=== PATIENT | male | born 1975 | race Caucasian/White ===

== ENCOUNTER 2017-12-20 12:48 | Outpatient (CLI) | payer BC, SELFPAY ==
[2017-12-20 14:07] LABS: ALT 28 U/L (12-78); AST 28 U/L (15-37); Albumin 4.1 g/dL (3.4-5.0); Alkaline Phosphatase 73 U/L (46-116); Anion Gap 8.4 mmol/L (3-11); BUN 14 mg/dL (7-18); Bilirubin, Total 0.9 mg/dL (0.2-1.0); CO2 30.6 mmol/L (21.0-32.0); CREATININE 1.02 mg/dL (0.70-1.30); Calcium 8.4 mg/dL (8.5-10.1); Chloride 102 mmol/L (98-107); Cholesterol 209 mg/dL (50-200); Glucose 96 mg/dL (70-100); HDL Cholesterol 49 mg/dL (40-60); LDL CHOLESTEROL 140 mg/dL (<100); Potassium 4.3 mmol/L (3.5-5.1); Sodium 141 mmol/L (136-145); Total Protein 7.3 g/dL (6.4-8.2); Triglyceride 128 mg/dL (30-150)
== END 2017-12-20 13:08 ==
PROVIDERS: PCP Emergency Medicine
DX: Z13.220 Encounter for screening for lipoid disorders (principal); Z13.228 Encounter for screening for other metabolic disorders
CPT/HCPCS: 36415; 80053; 80061; 83721

== ENCOUNTER 2019-12-23 14:09 | Outpatient (CLI) | payer BC, SELFPAY ==
[2019-12-25 13:58] LABS: Patient Race White; SARS-CoV-2 RNA Undetected (Undetected); SARS-CoV-2 Specimen Source Nasopharynx
== END 2019-12-23 14:29 ==
DX: R05 Cough (principal)
CPT/HCPCS: U0003

== ENCOUNTER 2020-01-09 02:01 | Outpatient (CLI) | payer BC, SELFPAY ==
[2020-01-09 09:04] LABS: ALT 34 U/L (16-63); AST 24 U/L (15-37); Alkaline Phosphatase 70 U/L (46-116); Anion Gap 4.9 mmol/L (3-11); BUN 16 mg/dL (7-18); Bilirubin, Total 0.3 mg/dL (0.2-1.0); CO2 30.1 mmol/L (21.0-32.0); CREATININE 0.95 mg/dL (0.70-1.30); Calcium 8.8 mg/dL (8.5-10.1); Calculated LDL 136 mg/dL (<100); Chloride 104 mmol/L (98-107); Cholesterol 244 mg/dL (<200); Glucose 92 mg/dL (74-106); HDL Cholesterol 43 mg/dL (40-60); Potassium 4.5 mmol/L (3.5-5.1); Sodium 139 mmol/L (136-145); Total Protein 7.6 g/dL (6.4-8.2); Triglyceride 325 mg/dL (<150)
== END 2020-01-09 02:21 ==
DX: Z00.00 Encounter for general adult medical examination without abnormal findings (principal); E03.9 Hypothyroidism, unspecified; E78.5 Hyperlipidemia, unspecified; I10 Essential (primary) hypertension; J30.9 Allergic rhinitis, unspecified; R63.8 Other symptoms and signs concerning food and fluid intake
CPT/HCPCS: 36415; 80053; 80061

== ENCOUNTER 2020-05-20 08:39 | Outpatient (CLI) | payer BC, SELFPAY ==
[2020-05-21 14:41] LABS: COVID-19 RT-PCR UVMMC Result Negative (Negative)
== END 2020-05-20 08:40 | disposition home or self-care (01) ==
LOC: LBO 08:39
DX: Z20.822 Contact with and (suspected) exposure to COVID-19 (principal)
CPT/HCPCS: U0003

== ENCOUNTER 2020-05-28 08:36 | Outpatient (CLI) | payer BC, SELFPAY ==
[2020-05-29 18:03] LABS: COVID-19 RT-PCR UVMMC Result Negative (Negative)
== END 2020-05-28 08:37 | disposition home or self-care (01) ==
DX: Z20.822 Contact with and (suspected) exposure to COVID-19 (principal)
CPT/HCPCS: U0003

== ENCOUNTER 2020-12-27 02:13 | Outpatient (CLI) | payer BC, SELFPAY ==
[2020-12-27 10:51] LABS: ALT 31 U/L (16-63); AST 20 U/L (15-37); Albumin 4.3 g/dL (3.4-5.0); Alkaline Phosphatase 68 U/L (46-116); Anion Gap 7.3 mmol/L (3-11); BUN 20 mg/dL (7-18); Bilirubin, Total 0.5 mg/dL (0.2-1.0); CO2 29.7 mmol/L (21.0-32.0); Calcium 9.3 mg/dL (8.5-10.1); Calculated LDL 162 mg/dL (<100); Chloride 105 mmol/L (98-107); Cholesterol 263 mg/dL (<200); Glucose 102 mg/dL (74-106); HDL Cholesterol 44 mg/dL (40-60); Potassium 4.4 mmol/L (3.5-5.1); Sodium 142 mmol/L (136-145); Total Protein 7.5 g/dL (6.4-8.2); Triglyceride 285 mg/dL (<150)
== END 2020-12-27 02:14 | disposition home or self-care (01) ==
LOC: LBO 02:14
DX: Z00.00 Encounter for general adult medical examination without abnormal findings (principal); E78.5 Hyperlipidemia, unspecified
CPT/HCPCS: 36415; 80053; 80061

== ENCOUNTER 2021-01-03 02:57 | Outpatient (CLI) | payer BC, SELFPAY ==
[2021-01-03 13:37] LABS: TSH (W/Ref FT4) 14.86 uIU/mL (0.36-3.74)
[2021-01-03 14:06] LABS: FREE T4 0.64 ng/dL (0.76-1.46)
== END 2021-01-03 02:58 | disposition home or self-care (01) ==
LOC: LBO 02:57
DX: E03.9 Hypothyroidism, unspecified (principal); I10 Essential (primary) hypertension; G47.00 Insomnia, unspecified
CPT/HCPCS: 36415; 84439; 84443

== ENCOUNTER 2021-03-07 03:16 | Outpatient (CLI) | payer BC, SELFPAY ==
[2021-03-07 09:04] LABS: ALT 29 U/L (16-63); AST 18 U/L (15-37); Alkaline Phosphatase 66 U/L (46-116); Anion Gap 4.9 mmol/L (3-11); BUN 21 mg/dL (7-18); Bilirubin, Total 0.4 mg/dL (0.2-1.0); CO2 33.1 mmol/L (21.0-32.0); CREATININE 1.1 mg/dL (0.70-1.30); Calcium 8.8 mg/dL (8.5-10.1); Calculated LDL 187 mg/dL (<100); Chloride 104 mmol/L (98-107); Cholesterol 278 mg/dL (<200); Glucose 96 mg/dL (74-106); HDL Cholesterol 48 mg/dL (40-60); Potassium 4.6 mmol/L (3.5-5.1); Sodium 142 mmol/L (136-145); TSH (W/Ref FT4) 12.42 uIU/mL (0.36-3.74); Triglyceride 219 mg/dL (<150)
[2021-03-07 09:32] LABS: FREE T4 0.64 ng/dL (0.76-1.46)
== END 2021-03-07 03:17 | disposition home or self-care (01) ==
LOC: LBO 03:17
DX: Z00.00 Encounter for general adult medical examination without abnormal findings (principal); E03.9 Hypothyroidism, unspecified; E78.5 Hyperlipidemia, unspecified; R63.8 Other symptoms and signs concerning food and fluid intake
CPT/HCPCS: 36415; 80053; 80061; 84439; 84443

== ENCOUNTER 2021-06-21 04:29 | Outpatient (CLI) | payer BC, SELFPAY ==
[2021-06-21 14:46] LABS: TSH (W/Ref FT4) 11.43 uIU/mL (0.36-3.74)
[2021-06-21 15:03] LABS: FREE T4 0.79 ng/dL (0.76-1.46)
== END 2021-06-21 04:30 | disposition home or self-care (01) ==
LOC: LBO 04:29
DX: E03.9 Hypothyroidism, unspecified (principal)
CPT/HCPCS: 36415; 84439; 84443

== ENCOUNTER 2021-09-16 03:16 | Outpatient (CLI) | payer BC, SELFPAY ==
--- OUTSIDE RECORDS SUMMARY | 2021-09-16 03:19 | XMS_ITS | Encounter Summary ---
:1975 Demographics Home Phone Preferred Language Unknown Marital Status Unknown Buddhist Affiliation Unknown Race Unknown Ethnic Group Unknown Author Organization [facility] Address [address] [place] [address] Care Team Providers Name Role Phone Unavailable Primary Care Provider Unavailable Encounter Details Date Type Department Care Team Description 05/28/2020 Lab Requisition [facility] Outr Resulting Lab, Pathology & Laboratory Provider [facility] [address] [place] [address] Social History Tobacco Use Types Packs/Day Years Used Date Never Assessed Sex Assigned at Date Recorded Not on file documented as of this encounter Plan of Treatment Not on filedocumented as of this encounter Procedures Procedure Name Priority Date/Time Associated Diagnosis Comme nts COVID-19 TEST [facility] Today 05/28/2020 9:02 EST LAB PCR COVID-19 TESTING Routine 05/28/2020 9:02 EST Resu lts for this procedure are i n the results section. documented in this encounter Results COVID-19 TEST [facility] PCR (05/28/2020 9:02 EST) Specimen Swab - Entire nasopharynx (body structur e) Performing Organization Address City/State/ZIP Code Phon e Number [facility] [address] [place] [address] SERVICES COVID-19 TESTING (05/28/2020 9:02 EST) COVID-19 rt-PCR Negative Negative [facility] Result Comment: [facility] This test has not been FDA c leared or approved. This test has been authorized by FDA under an EUA for use by authorized laboratories. This test has been authorized only for detection of nucleic acid fro SERVICES m 2019-nCoV, not for any oth er viruses or pathogens. This test is only authorized for the duration of the declaration that circumstances exist justifying the authorization of emergency use of in vitro d iagnostic tests for detectio n and/or diagnosis of 2019-nCoV under section 564(b)(1) of Act, 21 U.S.C ?? 360bbb-3(b) (1), unless the authorization is terminated or revoked sooner. Negative results do not prec lude 2019-nCoV infection and should not be used as the sole basis for treatment or other patient management decisions. Negative results must be combined with clinical observa tions, patient history, and epidemiological informatio n. This test was developed and its performance characteristics determined by [facility]. It has not been cleared or approved by the US Food and Drug Administration. FDA does not require this test to go through premarket FDA review. This t est is used for clinical purposes. It should not be regarded as investigational or for research. This laboratory is certified under the Clinical Laboratory Improvement Amendm ents (CLIA) as qualified to perform high complexity clinical laboratory testing. This test is based on the CD C COVID-19 Emergency Use Authorization (EUA) assay, with minor modification as defined by the FDA Performed on the [employer] 7 Flex RT-PCR System. Performing Lab [facility] Lab [facility] SERVICES Specimen Swab Performing Organization Address City/State/ZIP Code Phon e Number [facility] [address] [place] [address] SERVICES documented in this encounter Visit Diagnoses Not on filedocumented in this encounter
--- OUTSIDE RECORDS SUMMARY | 2021-09-16 03:19 | XMS_ITS | Encounter Summary ---
:1975 Demographics Home Phone Preferred Language Unknown Marital Status Unknown Tenriism Affiliation Unknown Race Unknown Ethnic Group Unknown Author Organization [facility] Address [address] [place] [address] Care Team Providers Name Role Phone Unavailable Primary Care Provider Unavailable Encounter Details Date Type Department Care Team Description 05/20/2020 Lab Requisition [facility] Outr Resulting Lab, Pathology & Laboratory Provider [facility] [address] [place] [address] Social History Tobacco Use Types Packs/Day Years Used Date Never Assessed Sex Assigned at Date Recorded Not on file documented as of this encounter Plan of Treatment Not on filedocumented as of this encounter Procedures Procedure Name Priority Date/Time Associated Diagnosis Comme nts COVID-19 TEST [facility] Today 05/20/2020 9:08 EST LAB PCR COVID-19 TESTING Routine 05/20/2020 9:08 EST Resu lts for this procedure are i n the results section. documented in this encounter Results COVID-19 TEST [facility] PCR (05/20/2020 9:08 EST) Specimen Swab - Entire nasopharynx (body structur e) Performing Organization Address City/State/ZIP Code Phon e Number [facility] [address] [place] [address] SERVICES COVID-19 TESTING (05/20/2020 9:08 EST) COVID-19 rt-PCR Negative Negative [facility] Result Comment: [facility] This test has not been FDA [...] developed and its performance characteristics determined by [facility]. It has not been cleared or approved [...] defined by the FDA Performed on the [employer] 7 Flex RT-PCR System. Performing Lab [facility] Lab [facility] SERVICES Specimen Swab Performing Organization Address City/State/ZIP Code Phon e Number [facility] [address] [place] [address] SERVICES documented in this encounter Visit Diagnoses Not on filedocumented in this encounter
--- OUTSIDE RECORDS SUMMARY | 2021-09-16 03:19 | XMS_ITS | Clinical Summary ---
:1975 Demographics Home Phone Preferred Language Unknown Marital Status Unknown Worship Affiliation Unknown Race Unknown Ethnic Group Unknown Author Organization [facility] Address [address] [place] [address] Care Team Providers Name Role Phone Unavailable Primary Care Provider Unavailable Social History Tobacco Use Types Packs/Day Years Used Date Never Assessed Sex Assigned at Date Recorded Not on file Plan of Treatment Not on file
[2021-09-16 13:59] LABS: TSH (W/Ref FT4) 2.78 uIU/mL (0.36-3.74)
== END 2021-09-16 03:17 | disposition home or self-care (01) ==
LOC: LBO 03:17
DX: E03.9 Hypothyroidism, unspecified (principal)
CPT/HCPCS: 36415; 84443

== ENCOUNTER 2022-01-06 01:51 | Outpatient (CLI) | payer BC, SELFPAY ==
[2022-01-06 08:47] LABS: ALT 23 U/L (16-63); AST 18 U/L (15-37); Albumin 4.4 g/dL (3.4-5.0); Alkaline Phosphatase 66 U/L (46-116); Anion Gap 3.4 mmol/L (3-11); BUN 23 mg/dL (7-18); Bilirubin, Total 0.6 mg/dL (0.2-1.0); CO2 33.6 mmol/L (21.0-32.0); CREATININE 1.3 mg/dL (0.70-1.30); Calcium 9.3 mg/dL (8.5-10.1); Chloride 103 mmol/L (98-107); Estimated GFR 69.04 (mL/min/1.73m2); FREE T4 0.98 ng/dL (0.76-1.46); Glucose 104 mg/dL (74-106); Potassium 4.6 mmol/L (3.5-5.1); Sodium 140 mmol/L (136-145); Total Protein 8.2 g/dL (6.4-8.2)
[2022-01-06 09:18] LABS: Hemoglobin A1C 5.5 % (<5.7)
== END 2022-01-06 01:52 | disposition home or self-care (01) ==
LOC: LBO 01:52
PROVIDERS: Visit Provider Nurse Practitioner Family
DX: E03.9 Hypothyroidism, unspecified (principal); E78.5 Hyperlipidemia, unspecified
CPT/HCPCS: 36415; 80053; 83036; 84439; 84443

== ENCOUNTER 2022-01-18 03:59 | Outpatient (CLI) | payer BC, SELFPAY ==
[2022-01-18 08:51] LABS: Calculated LDL 155 mg/dL (<100); Cholesterol 248 mg/dL (<200); HDL Cholesterol 51 mg/dL (40-60); Triglyceride 213 mg/dL (<150)
[2022-01-18 18:06] LABS: Thyroglobulin Antibody 41 U/mL (<=60); Thyroperoxidase Antibody >1300 U/mL (<=60)
== END 2022-01-18 04:00 | disposition home or self-care (01) ==
LOC: LBO 04:03
PROVIDERS: Visit Provider Nurse Practitioner Family
DX: E03.9 Hypothyroidism, unspecified (principal); E78.5 Hyperlipidemia, unspecified
CPT/HCPCS: 36415; 80061; 86376

== ENCOUNTER 2022-09-25 15:32 | Outpatient (CLI) | payer BC, SELFPAY ==
--- NOTE | 2022-09-25 14:15 | DI.RAD_ITS ---
Exam(s) XR HAND LT COMPLETE EXAM: XR HAND LT COMPLETE CLINICAL HISTORY: fall 3 weeks ago, continued swelling of 4th digit M79.642 PAIN LEFT HAND. TECHNIQUE: 2D digital imaging was performed. COMPARISON: No exams were available for comparison FINDINGS: 3 views No evidence of acute fracture nor dislocation. No radiopaque foreign body. There is a lung to truly orientated cleft in the tuft of the distal phalanx of the thumb. No true fr acture at this level and no radiographic evidence of osteomyelitis. There is a small 1 mm calcific density in the soft tissues just off the lateral aspect of the head of the thumb metacarpal. No degenerative changes noted at the 1st carpometacarpal joint. No erosions at the MCP joints IMPRESSION: Mild findings as above. No obvious acute fractures. DATA REPOSITORY: RADIATION DOSE DELIVERED:
== END 2022-09-25 15:52 ==
LOC: DI 15:34
PROVIDERS: PCP Nurse Practitioner Family; Visit Provider Nurse Practitioner Family
DX: M79.642 Pain in left hand (principal); W19.XXXD Unspecified fall, subsequent encounter
CPT/HCPCS: 73130

== ENCOUNTER 2022-10-23 06:06 | Day surgery (SDC) | payer BC, SELFPAY ==
--- NOTE | 2022-10-22 11:31 | W.PM.DSUDISC ---
Date of service: 10/23/22 Time of Service: 07:52 Discharge Plan Disposition Patient Disposition: Home Condition: Good Discharge Details Reason For Visit: Screening colonoscopy Attending Provider: Jhonny Draper Primary Care Provider: Aram Giordano Home Meds and New Rx's Prescriptions: Continued ibuprofen 200 mg tablet 600 mg PO DAILY PRN levothyroxine 112 mcg tablet 112 mcg PO DAILY Qty: 90 3RF Discontinued bisacodyl [Dulcolax (bisacodyl)] 5 mg tablet,delayed release (DR/EC) 5 mg PO ONCE Qty: 4 0RF Rx Instructions: Take per colonoscopy instructions provided by ordering providers office polyethylene glycol 3350 17 gram/dose powder 17 g PO ONCE Qty: 238 0RF Rx Instructions: Take per colonoscopy instructions provided by ordering providers office Discharge Instructions Additional Instructions: Viviane, we were able to complete your colonoscopy just fine today. It was totally normal. There is no signs of polyps tumors or anything out of the ordinary. You will need another screening colonoscopy in 10 years. 1. If tolerated, consume a soft, low fiber diet for 1-2 days. 2[address] Do not drive, drink alcohol, operate machinery, make critical decisions, or do activities that require coordination or balance for 24 hours. 3. Because air was put into your colon during the procedure, expelling air from your rectum (passing gas or farting) is normal. 4. You may not have a bowel movement for 1-3 days because of the colonoscopy prep. This is normal. 5. Go directly to the emergency room if you notice any of the following: Develop chills (warm to touch), or if you have a thermometer and your temperature is above 101 Difficulty breathing or difficultly swallowing Persistent vomiting Severe abdominal pain, other than gas cramps Severe chest pain Black, tarry stools Any bleeding ? exceeding one tablespoon 6. Call your physician if the site where your intravenous was started becomes red, swollen, painful, and warm to touch. 7. Your physician has reviewed your pre-procedure medications. Please continue to take those medications as previously ordered. You will be given specific information/education regarding any changes to your medications before leaving. Activity:: Activity as Tolerated Diet:: As Tolerated Discharge Orders Discharge Orders: Discharge Order (Routine); Ordered 10/22/22 Ordered By: Jhonny Draper DS: Diagnosis Discharge Diagnosis (1) Screen for colon cancer: Status: Acute Asessment and Plan: Negative screening colonoscopy
--- NOTE | 2022-10-22 11:33 | W.COLOREPORT ---
Date of service: 10/23/22 Time of Service: 07:52 Colonoscopy Report Date of procedure: 10/23/22 Pre-op diagnosis general: Screening colonoscopy Post-op diagnosis procedure note: other (Negative screening colonoscopy) Procedure: Colonoscopy Surgeon: Jhonny Draper Anesthesia Type: General:No Airway Estimated blood loss (mL): 0 Pathology: none sent Complications: None Disposition: same day Indications: Arben is a 47-year-old male with a first-degree relative with colon cancer. He is here for screening colonoscopy. Prep: Miralax/Dulcolax Procedure Start Time: 07:26 Procedure End Time: 07:42 Retraction Time: 12 Findings: Negative screening colonoscopy Procedure Description: After the induction of monitored anesthetic care, and with the patient in left lateral decubitus position, I began by performing an external anorectal exam.? Perineum and skin were normal, as was the anal verge.? There was no evidence of external hemorrhoids.? Next, I performed a digital rectal exam.? I did not appreciate any abnormal findings.? Next, I advanced a colonoscope into the rectal vault.? I performed retroflexion.? This was normal.? Using insufflation, I then advanced the colonoscope beyond the rectal folds and into the sigmoid colon before advancing towards the cecum.? The quality of the prep was outstanding.? The scope was noted to be in the cecum by identification of the ileocecal valve and appendiceal orifice.? I then began withdrawing the colonoscope using repeated irrigation as necessary for full evaluation of the colonic mucosa. ?Once the scope was withdrawn to the level of the rectum, great care was taken to examine portions of the rectal folds.? Finally, the scope was withdrawn and the patient was brought to the same-day surgery recovery unit as the anesthetic wore off. ?The findings and instructions were shared with the patient prior to discharge.
[2022-10-23 06:15] VITALS: BP 97/54; PULSE 43; RESP 16; TEMP 36.2; O2SAT 98
[2022-10-23] MEDS: Lactated Ringers 1,000 ML 80 ML IV (06:31)
--- NOTE | 2022-10-23 06:55 | W.ANESPRE ---
General Info Date of Service Date Performed: 10/23/22 Height: 5 ft 10 in Weight: 85.7 kg Body Mass Index (BMI): 27.1 Surgical Procedure: Operation Date: 10/23/22 07:35 Proposed Procedure Side Surgeon niya Draper MD Meds Allergies and Home Medications Allergies Allergy/AdvReac Type Severity Reaction Status Date / Time No Known Allergies Allergy Verified 10/23/22 06:21 Home Medication Medication Instructions Recorded ibuprofen 200 mg tablet 600 mg PO DAILY PRN 12/19/17 levothyroxine 112 mcg tablet 112 mcg PO DAILY #90 tabs 04/24/22 Current Visit Medications: Current Medications Generic Name Dose Route Start Last Admin Trade Name Freq PRN Reason Stop Dose Admin Hyoscyamine Sulfate 0.125 mg 10/22/22 11:33 Hyoscyamine 0.125 Mg Sl/Oral/Chew SL 11/21/22 11:32 DIRECTED PRN Ringer's Solution 1,000 mls @ 80 mls/hr 10/23/22 06:00 10/23/22 06:31 IV 11/19/22 23:59 80 mls/hr INFUSION JOSSELYN Administration IV Miscellaneous Supplies 1 each 10/23/22 06:00 Iv Access IV 11/19/22 23:59 DIRECTED JOSSELYN Ondansetron HCl 4 mg 10/22/22 11:33 Ondansetron 4 Mg/2 Ml Vial IVP 11/21/22 11:32 Q4H PRN PRN Nausea / Vomiting Sodium Chloride 0 ml 10/23/22 06:00 Normal Saline Flush 10 Ml Syr IV 11/19/22 23:59 PRN PRN Sodium Chloride 0 ml 10/23/22 06:00 Normal Saline 10 Ml Vial IJ 11/19/22 23:59 DIRECTED PRN Sterile Water 0 ml 10/23/22 06:00 Water,Injection,Sterile 10 Ml Vial IJ 11/19/22 23:59 DIRECTED PRN PFSH Active Problems Active Problems: Problem Status Onset Code Screen for colon cancer Z12.11 Allergic rhinitis 02/19/12 J30.9 Displacement of lumbar intervertebral disc without myelopathy M51.26 Mild anxiety 06/17/15 F41.9 Molluscum contagiosum infection 02/19/12 B08.1 Psoriasis 02/19/12 L40.9 Seborrheic dermatitis 02/19/12 L21.9 Increased body mass index (BMI) R63.8 Hyperlipidemia LDL goal <100 E78.5 Skin lesion of back L98.9 Hyperlipidemia E78.5 Hypothyroidism E03.9 Left hand pain M79.642 Medical History Medical History Epilepsy (02/16/92) PEDI-MAL LAST 1992 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77) 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 Tobacco Smoking/Tobacco Use Status: Never Passive smoking exposure: Yes Second hand exposure: Yes Alcohol Alcohol Intake: current Alcohol intake frequency: a few times a week Alcohol type: beer and hard liquor Substance Use Substance use: Never Substance use type: does not use Counseling provided: none Vital Signs and Lab Results Vital Signs Most Recent Vital Signs in EMR: Most Recent Vital Signs Temp Pulse Resp BP Pulse Ox 36.2 C L 43 L 16 97/54 L 98 10/23/22 06:15 10/23/22 06:15 10/23/22 06:15 10/23/22 06:15 10/23/22 06:15 Lab Results Blood Type / Crossmatch: No Data to Display Complete Blood Count: No Data to Display Complete Metabolic Panel: No Data to Display Liver Function Panel: No Data to Display Coagulation Panel: No Data to Display Cardiac Panel: No Data to Display Arterial Blood Gas: No Data to Display Venous Blood Gas: No Data to Display Pancreas Panel: No Data to Display Thyroid Panel: No Data to Display Infectious Disease: No Data to Display Blood Cultures: No Data to Display Toxicology Panel: No Data to Display Anesthesia Assessment and Plan Anesthesia History Personal History: No History of Anesthesia Complications Family History: No Family History of Anesthesia Complications Exercise Tolerance Exercise Tolerance: Metabolic Equivalents>4 Pertinent Negatives Pertinent Negatives: No Symptoms of GERD, No Major Cardiovascular Symptoms or Complaints and No Major Pulmonary Symptoms or Complaints Cardiac & Pulmonary Exam Cardiac Exam: Normal S1/S2 Heart Sounds Pulmonary Exam: Clear Bilateral Breath Sounds Implantable Cardiac Device Does patient have a Pacemaker or an ICD?: No Airway Exam Known Difficult Airway: No Mallampati Class: 1 Mouth Opening: Normal (> 3cm) Thyromental Distance: Greater than 3 cm Facial Hair: Full Lee Neck Range of Motion: Full ROM Neck Circumference: Normal Teeth Condition: Normal Dentition ASA Classification ASA Score: ASA 2 Emergency Case?: No NPO Status NPO Status: NPO Clears >2 hours, Solids >8 hours Anesthesia Plan Resuscitation Status: Full Code Anesthesia Technique: General Anesthesia Airway Planned: Natural Airway Monitors Used: Standard Monitors
[2022-10-23 07:10] VITALS: BMI 27.1
[2022-10-23 07:50] VITALS: BP 93/63; PULSE 49; RESP 16; TEMP 36.3; O2SAT 97
--- NOTE | 2022-10-23 08:18 | W.ANESPOSTOP ---
Postoperative Evaluation Date, Time and Location Date Performed: 10/23/22 Time Performed: 08:18 Patient Location: Day Surgery Unit Vital Signs Most Recent Imported Vital Signs: Most Recent Vital Signs Temp Pulse Resp BP Pulse Ox 36.3 C L 49 L 16 93/63 L 97 10/23/22 07:50 10/23/22 07:50 10/23/22 07:50 10/23/22 07:50 10/23/22 07:50 Pain Score Most Recent Pain Score: Most Recent Pain Score Pain Level 0 10/23/22 07:50 Assessment Mental Status: Awake (Alert & Oriented to Patient Baseline) Airway and Respiratory Function: Patent airway with normal (patient baseline) respiratory exam Cardiovascular Function: Hemodynamically Stable Hydration Status: Adequately Hydrated Nausea & Vomiting: No Nausea or Vomiting Pain: Pt. Denies Any Pain Peripheral Nerve Block: Patient did not receive a nerve block
[2022-10-23 08:20] VITALS: BP 96/70; PULSE 50; RESP 16; TEMP 36.3; O2SAT 99
== END 2022-10-23 08:20 | disposition home or self-care (01) ==
PROVIDERS: PCP Nurse Practitioner Family; Visit Provider Surgery
PROC: 0DJD8ZZ Inspection of Lower Intestinal Tract, Via Natural or Artificial Opening Endoscopic (ICD-10-PCS; CPT 45378; principal; 2022-10-23 07:30)
DX: Z12.11 Encounter for screening for malignant neoplasm of colon (principal); Z80.0 Family history of malignant neoplasm of digestive organs
CPT/HCPCS: 45378; J2001

== ENCOUNTER 2024-02-11 14:15 | Outpatient (CLI) | payer BC, SELFPAY ==
--- NOTE | 2024-02-11 09:55 | DI.RAD_ITS ---
Exam(s) XR CHEST 2V PA LATERAL EXAM: XR CHEST 2V PA LATERAL CLINICAL HISTORY: Cough, R05.9, eval for pna TECHNIQUE: 2D digital imaging was performed of the chest. Two images were obtained. PA and lateral views were obtained. COMPARISON: No exams were available for comparison FINDINGS: MEDIASTINUM: Normal. HEART: Normal. PULMONARY VASCULATURE: Normal. LUNGS: Clear. PLEURAL SPACE: No pleural effusion or pneumothorax. BONE:Within normal limits for the patient's age. OTHER FINDINGS:Normal. IMPRESSION: No acute pulmonary findings. DATA REPOSITORY: RADIATION DOSE DELIVERED:
== END 2024-02-11 14:35 ==
PROVIDERS: PCP Nurse Practitioner Family; Visit Provider Nurse Practitioner Family
DX: R05.9 Cough, unspecified (principal)
CPT/HCPCS: 71046